=== PATIENT | female | born 1930 | race Caucasian/White ===

== ENCOUNTER → 2018-05-23 | Outpatient (CLI) | payer OTHER ==
[~2018-05-23] MED LIST: ACETA-GESIC 321 EACH; CARDIZEM CD180 MG; COLACE 100 MG100 MG; MEDICATION; XARELTO20 MG PO
[2018-05-23 12:50] LABS: CALCIUM 8.9 mg/dL (8.5-10.1); CREATININE 1.1 mg/dL (0.6-1.3); POTASSIUM 4.6 mmol/L (3.5-5.1)
== END ==
LOC: M.LAB 12:05
PROVIDERS: Nurse Practitioner
DX: I50.30 Unspecified diastolic (congestive) heart failure (principal); I48.91 Unspecified atrial fibrillation

== ENCOUNTER → 2018-06-18 | Outpatient (CLI) | payer OTHER ==
--- NOTE | 2018-06-18 13:41 | 2DMMODE ---
[place] [address] 2 D/M-MODE ECHOCARDIOGRAM Name: KACI VEGAS Room: [facility]#: [id number] Admission: 06/18/18 Attend Phys: Mariela Ozuna, Discharge: Date of : [birth year] Date of Service: 06/18/18 1340 Report #: [id number] THIS REPORT FOR: //name// APPROVED REPORT Study performed: 06/18/2018 10:12:52 EXAM: Comprehensive 2D, Doppler, and color-flow Echocardiogram Patient Location: Out-Patient Status: routine BSA: 1.68 HR: 70 bpm BP: 116/82 mmHg Other Information Study Quality: Good Indications Atrial Fibrillation 2D Dimensions IVSd: 9.71 (7-11mm) LVOT Diam: 20.19 (18-24mm) LVDd: 43.41 mm PWd: 9.36 (7-11mm) Ascending Ao: 31.99 (22-36mm) LVDs: 26.98 (25-40mm) Aortic Root: 32.70 mm Volumes Left Atrial Volume (Systole) LA ESV Index: 42.10 mL/m2 Aortic Valve AoV Peak Sky.: 1.44 m/s AO Peak Gr.: 8.25 mmHg LVOT Max P.93 mmHg AO Mean Gr.: 4.40 mmHg LVOT Mean P.66 mmHg LVOT Max V: 1.22 m/s AO V2 VTI: 25.42 cm LVOT Mean V: 0.74 m/s JIMMY (VTI): 3.03 cm2 LVOT V1 VTI: 24.05 cm Mitral Valve MV Decel. Time: 218.59 ms MV PHT: 63.39 ms MVA (PHT): 3.47 [place] [address] 2 D/M-MODE ECHOCARDIOGRAM Name: KACI VEGAS Room: [facility]#: [id number] Admission: 06/18/18 Attend Phys: Mariela Ozuna, Discharge: Date of : [birth year] Date of Service: 06/18/18 1340 Report #: [id number] TDI Medial E' Sky.: 0.12 m/s Lateral E' Sky.: 0.12 m/s Pulmonary Valve PV Peak Sky.: 0.96 m/s PV Peak Gr.: 3.66 mmHg Tricuspid Valve RAP Estimate: 5.00 mmHg TR Peak Gr.: 24.06 mmHg RVSP: 29.06 mmHg PA Pressure: 29.06 mmHg Left Ventricle The left ventricle is normal size. There is normal LV segmental wall motion. There is normal left ventricular wall thickness. Left ventricular systolic function is normal. The left ventricular ejection fraction is within the normal range. LVEF is 55-60%. The left ventricular diastolic function is normal. Right Ventricle The right ventricle is normal size. The right ventricular systolic function is normal. Atria Left atrium is moderately dilated. Right atrium is moderately dilated. Aortic Valve The aortic valve is normal in structure. No aortic regurgitation is present. There is no aortic valvular stenosis. Mitral Valve There is mild mitral annular calcification. Mild mitral regurgitation. No evidence of mitral valve stenosis. Tricuspid Valve The tricuspid valve is normal in structure. Mild tricuspid regurgitation. estimated pa pressure 40 mm Hg Pulmonic Valve Pulmonic valve is not well visualized. There is no pulmonic valvular regurgitation. Great Vessels The aortic root is normal in size. IVC is normal in size and collapses >50% [place] [address] 2 D/M-MODE ECHOCARDIOGRAM Name: KACI VEGAS Room: [facility]#: [id number] Admission: 06/18/18 Attend Phys: Mariela Ozuna, Discharge: Date of : [birth year] Date of Service: 06/18/18 1340 Report #: [id number] Pericardium There is no pericardial effusion. <Conclusion> LVEF is 55-60%. Left atrium is moderately dilated. Right atrium is moderately dilated. Mild mitral regurgitation. Mild tricuspid regurgitation. estimated pa pressure 40 mm Hg <ELECTRONICALLY SIGNED> By: Smith Fisher MD, FACC 06/18/18 1340 1340 39 Smith Fisher MD, FAC /INF
== END ==
LOC: M.CRD 10:00
DX: I08.1 Rheumatic disorders of both mitral and tricuspid valves (principal); I50.30 Unspecified diastolic (congestive) heart failure; I48.2 Chronic atrial fibrillation